=== PATIENT | female | born 1975 | race Caucasian/White ===

== ENCOUNTER 2018-04-04 21:16 | Emergency (ER) | payer SELFPAY ==
--- NOTE | 2018-04-04 22:08 | RAD ---
RIGHT KNEE: 04/04/18 Four views. HISTORY: Right knee pain and swelling. The medial and lateral joint spaces are preserved. There are mild degenerative changes noted with spu rring from the femoral and tibial condyles as well as mild spurring from the posterior patella. There is evidence of a small joint effusion. No fracture or acute abnormality identified. IMPRESSION: There are mild degenerative changes with evidence of small joint effusion. POS: [facility]
== END 2018-04-04 22:39 | disposition home or self-care (01) ==
LOC: ERS 21:16
DX: M25.561 Pain in right knee (principal); F41.9 Anxiety disorder, unspecified; F17.210 Nicotine dependence, cigarettes, uncomplicated

== ENCOUNTER 2021-08-15 18:47 | Emergency (ER) | payer SELFPAY ==
[2021-08-15] MEDS ORDERED: Bacitracin 1 PK ONE (20:33)
== END 2021-08-15 20:44 | disposition home or self-care (01) ==
LOC: ERS 18:47
DX: L02.612 Cutaneous abscess of left foot (principal); F17.210 Nicotine dependence, cigarettes, uncomplicated
CPT/HCPCS: 10060

== ENCOUNTER 2021-10-27 18:22 | Emergency (ER) | payer SELFPAY ==
[2021-10-27] MEDS ORDERED: Acetaminophen 500 MG TAB ONE (20:20)
[2021-10-27] MEDS ORDERED: Dexamethasone 4 mg/ml Vial ONE (20:20)
[2021-10-28 13:32] LABS: SARS-CoV-2 PCR by NAA DETECTED (NotDetected)
== END 2021-10-27 21:10 | disposition home or self-care (01) ==
LOC: ERS 18:22
DX: U07.1 COVID-19 (principal); F17.210 Nicotine dependence, cigarettes, uncomplicated
CPT/HCPCS: 99284; J1100; U0003; U0005